=== PATIENT | female | born 1985 | race Native Hawaiian/Other Pacific Islander ===

== ENCOUNTER 2017-06-14 18:20 | Emergency (ER) | payer OTHER ==
[~2017-06-14] VITALS: Ht 160 cm; Wt 68.0 kg
[2017-06-14 19:36] LABS: PLATELET COUNT 206 K/uL (152-353)
[2017-06-14 19:46] LABS: POTASSIUM 3.8 mmol/L (3.6-5.2); SODIUM 130 mmol/L (136-145)
== END 2017-06-14 20:32 | disposition home or self-care (01) ==
LOC: EDBD 18:20 → ED 18:20
DX: F20.9 Schizophrenia, unspecified (principal); R00.0 Tachycardia, unspecified
CPT/HCPCS: 36415; 80053; 80307; 80320; 80329; 81000; 81025; 85027; 96372; 99285; J1630; J2060

== ENCOUNTER 2017-06-17 15:25 | Emergency (ER) | payer OTHER ==
[~2017-06-17] VITALS: Ht 160 cm; Wt 59.0 kg
[2017-06-17 16:13] LABS: PLATELET COUNT 251 K/uL (152-353)
[2017-06-17 16:57] LABS: SODIUM 133 mmol/L (136-145)
== END 2017-06-18 19:49 | disposition home or self-care (01) ==
LOC: ED 15:25
PROVIDERS: Emergency Medicine
DX: F32.89 Other specified depressive episodes (principal); F29 Unspecified psychosis not due to a substance or known physiological condition
CPT/HCPCS: 80053; 80307; 80320; 80329; 81000; 82550; 84484; 84702; 85027; 85610; 85730; 93005; 99285